=== PATIENT | female | born 1965 | race Caucasian/White ===

== ENCOUNTER 2017-12-02 09:25 | Emergency (ER) | payer MEDICARE, MEDICAID ==
[~2017-12-02] VITALS: Ht 167.6 cm; Wt 84.4 kg
[~2017-12-02 09:25] MED LIST: CANE-100; CYCL-1 PO; METH-360 PO; PANT-47 PO
[2017-12-02] MEDS ORDERED: CYCL-1 PO (13:06)
[2017-12-02 13:48] VITALS: BP 171/86
== END 2017-12-02 13:49 | disposition home or self-care (01) ==
LOC: ER 09:26
DX: M79.1 Myalgia (principal); M54.89 Other dorsalgia; G89.29 Other chronic pain; M19.90 Unspecified osteoarthritis, unspecified site; F17.200 Nicotine dependence, unspecified, uncomplicated; F12.10 Cannabis abuse, uncomplicated; Z98.890 Other specified postprocedural states; Z88.0 Allergy status to penicillin
CPT/HCPCS: 99283

== ENCOUNTER 2023-05-16 13:13 | Day surgery (SDC) | payer MEDICARE, MEDICAID ==
[2023-05-11 12:01] LABS: BASOPHILS # (AUTO) 0.1 X10'3 (0-0.2); BASOPHILS % (AUTO) 0.5 % (0-1); EOSINOPHILS # (AUTO) 0.2 X10'3 (0-0.9); EOSINOPHILS % (AUTO) 2.2 % (0-6); HEMATOCRIT 45.6 % (35.0-45.0); HEMOGLOBIN 15.4 g/dl (12.0-16.0); LYMPHOCYTES # (AUTO) 3.6 X10'3 (1.1-4.8); LYMPHOCYTES % (AUTO) 39.4 % (21-51); MEAN CORPUSCULAR HEMOGLOBIN 32.8 PG (27.0-31.0); MEAN CORPUSCULAR HGB CONC 33.7 g/dL (33.0-36.5); MEAN CORPUSCULAR VOLUME 97.4 FL (78-98); MEAN PLATELET VOLUME 7.9 FL (7.4-10.4); MONOCYTES # (AUTO) 0.7 X10'3 (0-0.9); MONOCYTES % (AUTO) 8.1 % (2-12); NEUTROPHILS # (AUTO) 4.6 X10'3 (1.8-7.7); NEUTROPHILS % (AUTO) 49.8 % (42-75); PLATELET COUNT 296 X10'3 (140-440); RED BLOOD COUNT 4.68 X10'6 (4.20-5.60); RED CELL DISTRIBUTION WIDTH 13.7 % (11.5-14.5); WHITE BLOOD COUNT 9.2 X10'3 (4.5-11.0)
[2023-05-11 12:12] LABS: ALBUMIN 4.4 G/DL (3.4-5.0); ANION GAP 12 (8-16); BLOOD UREA NITROGEN 19 MG/DL (7-18); BUN/CREATININE RATIO 21.6 (10.0-20.0); CHLORIDE 104 MMOL/L (99-107); CREATININE 0.88 MG/DL (0.40-0.90); GLUCOSE 91 MG/DL (70-104); POTASSIUM 3.9 MMOL/L (3.5-5.1); SODIUM 138 MMOL/L (135-145); TOTAL CARBON DIOXIDE 21.9 MMOL/L (24-32); eGFR 66 ML/MIN
[2023-05-11 12:14] LABS: APTT 28 SECONDS (22-32)
[~2023-05-16] VITALS: Ht 167.6 cm; Wt 98.3 kg
[2023-05-16] VITALS (10 sets, daily range): BP systolic 101–137; BP diastolic 70–92
[~2023-05-16 13:13] MED LIST changes: +APIX5TAB3 PO; -CANE-100; -CYCL-1 PO; +LISI5TAB22 PO; -METH-360 PO; +METO-395 PO; +NO HOME MEDS; -PANT-47 PO
[2023-05-16] MEDS ORDERED: normal saline 1000ml 1,000 ML IV SCH (13:25)
[2023-05-16] MEDS ORDERED: MIDAZolam 1mg/ml 10ml vial IV ONE (13:25)
[2023-05-16] MEDS ORDERED: fentaNYL/PF 50MCG/1 ML 2ML syringe IV ONE (13:25)
[2023-05-16] MEDS ORDERED: Ibuprofen PO (13:35)
[2023-05-16] MEDS ORDERED: SOTA80TA73 PO (13:35)
[2023-05-16] MEDS ORDERED: SACU1TAB PO (13:35)
[2023-05-16] MEDS ORDERED: DAPA10TA PO (13:35)
[2023-05-16] MEDS ORDERED: APIX5TAB3 PO (13:37)
== END 2023-05-16 16:45 | disposition home or self-care (01) ==
LOC: SSTAY O 13:13
PROVIDERS: ATTEND Student in an Organized Health Care Education/Training Program
DX: I48.91 Unspecified atrial fibrillation (principal); I11.0 Hypertensive heart disease with heart failure; I50.9 Heart failure, unspecified; I45.10 Unspecified right bundle-branch block; I42.9 Cardiomyopathy, unspecified; E66.9 Obesity, unspecified; Z68.35 Body mass index [BMI] 35.0-35.9, adult; Z79.01 Long term (current) use of anticoagulants; Z79.899 Other long term (current) drug therapy; Z88.0 Allergy status to penicillin; F17.290 Nicotine dependence, other tobacco product, uncomplicated; F19.11 Other psychoactive substance abuse, in remission
CPT/HCPCS: 36415; 80048; 85025; 85610; 85730; 92960; J7030; A4620

== ENCOUNTER 2023-07-07 09:54 | Emergency (ER) | payer MEDICARE, MEDICAID ==
[~2023-07-07] VITALS: Ht 167.6 cm; Wt 100.0 kg
[~2023-07-07 09:54] MED LIST changes: +DAPA10TA PO; +Ibuprofen PO; -LISI5TAB22 PO; -METO-395 PO; -NO HOME MEDS; +SACU1TAB PO; +SOTA80TA73 PO
[2023-07-07 10:04] VITALS: O2SAT 96
[2023-07-07 11:22] VITALS: BP 90/73; PULSE 59; RESP 16
[2023-07-07] MEDS ORDERED: ketorolac trometh inj. 60 MG/2 ML VIAL IM ONE (11:35)
[2023-07-28] MEDS ORDERED: LACT1CAP76 PO (10:28)
[2023-07-28] MEDS ORDERED: DOXY-356 PO (10:28)
== END 2023-08-09 07:49 | disposition home or self-care (01) ==
LOC: ER 09:55
DX: M25.462 Effusion, left knee (principal); M25.562 Pain in left knee; M25.552 Pain in left hip; M19.90 Unspecified osteoarthritis, unspecified site; F12.90 Cannabis use, unspecified, uncomplicated; Z88.0 Allergy status to penicillin; Z79.899 Other long term (current) drug therapy; Z90.49 Acquired absence of other specified parts of digestive tract
CPT/HCPCS: 73502; 73552; 73564; 96372; 99284; J1885

== ENCOUNTER 2023-07-24 10:27 | Inpatient (IN) | payer MEDICARE, MEDICAID ==
[~2023-07-24] VITALS: Ht 167.6 cm; Wt 94.2 kg
[2023-07-24] MEDS ORDERED: HYDROcodone/acetaminophen 10/325mg tab PO ONE (15:25)
[2023-07-24] MEDS ORDERED: cephalexin 250mg capsule PO ONE (15:45)
[2023-07-24] MEDS ORDERED: sulfamethoxazole/trimethoprim DS (800/160mg) tablet PO ONE (15:45)
[2023-07-24] MEDS ORDERED: cephalexin 500mg capsule PO ONE (15:50)
[2023-07-24 16:40] LABS: BASOPHILS % (AUTO) 0.1 % (0-1); EOSINOPHILS % (AUTO) 0.2 % (0-6); HEMATOCRIT 37.5 % (35.0-45.0); HEMOGLOBIN 12.4 g/dl (12.0-16.0); LYMPHOCYTES # (AUTO) 1.6 X10'3 (1.1-4.8); MEAN CORPUSCULAR HEMOGLOBIN 33.2 PG (27.0-31.0); MEAN CORPUSCULAR HGB CONC 33.1 g/dL (33.0-36.5); MEAN CORPUSCULAR VOLUME 100.4 FL (78-98); MONOCYTES # (AUTO) 1.2 X10'3 (0-0.9); MONOCYTES % (AUTO) 6.1 % (2-12); NEUTROPHILS # (AUTO) 16.7 X10'3 (1.8-7.7); NEUTROPHILS % (AUTO) 85.6 % (42-75); PLATELET COUNT 423 X10'3 (140-440); RED BLOOD COUNT 3.74 X10'6 (4.20-5.60); RED CELL DISTRIBUTION WIDTH 15.7 % (11.5-14.5); WHITE BLOOD COUNT 19.5 X10'3 (4.5-11.0)
[2023-07-24 16:58] LABS: ALANINE AMINOTRANSFERASE 26 U/L (12-78); ALBUMIN/GLOBULIN RATIO 1.3 (1.1-1.5); ALKALINE PHOSPHATASE 89 IU/L (46-116); ANION GAP 11 (8-16); ASPARTATE AMINO TRANSFERASE 19 U/L (10-37); BILIRUBIN,TOTAL 0.7 MG/DL (0.1-1.0); BLOOD UREA NITROGEN 11 MG/DL (7-18); BUN/CREATININE RATIO 13.4 (10.0-20.0); CHLORIDE 104 MMOL/L (99-107); CREATININE 0.82 MG/DL (0.40-0.90); GLUCOSE 109 MG/DL (70-104); POTASSIUM 3.1 MMOL/L (3.5-5.1); SODIUM 140 MMOL/L (135-145); TOTAL CARBON DIOXIDE 24.9 MMOL/L (24-32); TOTAL PROTEIN 7.2 G/DL (6.4-8.2); eCRCL 70 ML/MIN; eGFR 72 ML/MIN
[2023-07-24] MEDS ORDERED: vancomycin/NS 1 GM ADD-VANTAGE 250 ML IV ONE (17:40)
[2023-07-24] MEDS ORDERED: potassium Cl 40MEQ/1/2NS 520ml 520 ML IV PRN (18:05)
[2023-07-24] MEDS ORDERED: ondansetron/PF 4mg/2ml inj IV PRN (18:05)
[2023-07-24] MEDS ORDERED: morphine 2 MG/ML inj. syringe IV PRN ×2 (18:05)
[2023-07-24] MEDS ORDERED: magnesium 2GM in 50ml NS 50 ML IV PRN (18:05)
[2023-07-24] MEDS ORDERED: HYDROcodone/acetaminophen 5mg/325mg tablet PO PRN (18:05)
[2023-07-24] MEDS ORDERED: magnesium hydroxide 30ml (MOM) UD suspension PO PRN (18:05)
[2023-07-24] MEDS ORDERED: acetaminophen 325mg tablet PO PRN ×2 (18:05)
[2023-07-24] MEDS ORDERED: potassium Cl 20 mEq SR tablet PO PRN (18:05)
[2023-07-24] MEDS ORDERED: magnesium 4gm in 100ml NS 100 ML IV PRN (18:05)
[2023-07-24] MEDS ORDERED: mag hydrox/Alum hydrox/simeth 30ml oral suspension PO PRN (18:05)
[2023-07-24] MEDS ORDERED: magnesium Cl slow-release 64mg tablet PO PRN (18:05)
[2023-07-24 20:14] LABS: MAGNESIUM 1.9 MG/DL (1.5-2.4)
--- NOTE | 2023-07-24 21:11 | NUR ---
VANCO RESTARTED AFTER NEW PIV ESTABLISHED LAC. 2000 MEDS NOT GIVEN D/T VANCO INFUSION. RECIEVING NSG AWARE
[2023-07-24] MEDS: docusate sod 100mg capsule PO SCH (21:56)
[2023-07-24] MEDS: heparin, porcine 5000 units/ml vial SQ SCH (21:58)
[2023-07-24 22:00] VITALS: BP 120/38; PULSE 67; RESP 16; TEMP 98.4; O2SAT 96
[2023-07-24 23:55] VITALS: RESP 18; O2SAT 96
[2023-07-25 00:19] LABS: URINE AMPHETAMINE SCREEN NEGATIVE (Neg); URINE BARBITUATE SCREEN NEGATIVE (Neg); URINE BENZODIAZEPINES SCREEN NEGATIVE (Neg); URINE CANNABINOID SCREEN POSITIVE (Neg); URINE COCAINE SCREEN NEGATIVE (Neg); URINE METHADONE SCREEN NEGATIVE (Neg); URINE OPIATE SCREEN POSITIVE (Neg); URINE PHENCYCLIDINE SCREEN NEGATIVE (Neg)
[2023-07-25] MEDS: HYDROcodone/acetaminophen 10/325mg tab PO PRN ×5 (03:06→22:11)
[2023-07-25 06:00] VITALS: BP 141/57; PULSE 54; RESP 16; TEMP 98.1; O2SAT 97
[2023-07-25] MEDS ORDERED: VANCOmycin 1250MG/NS 250ml Bag 250 ML IV SCH (06:00)
[2023-07-25 06:48] LABS: BASOPHILS % (AUTO) 0.3 % (0-1); EOSINOPHILS % (AUTO) 0.3 % (0-6); HEMATOCRIT 33.7 % (35.0-45.0); HEMOGLOBIN 11.1 g/dl (12.0-16.0); LYMPHOCYTES # (AUTO) 2.7 X10'3 (1.1-4.8); LYMPHOCYTES % (AUTO) 19.8 % (21-51); MEAN CORPUSCULAR HEMOGLOBIN 33.2 PG (27.0-31.0); MEAN CORPUSCULAR HGB CONC 32.9 g/dL (33.0-36.5); MEAN CORPUSCULAR VOLUME 100.8 FL (78-98); MEAN PLATELET VOLUME 8.1 FL (7.4-10.4); MONOCYTES % (AUTO) 7.7 % (2-12); NEUTROPHILS # (AUTO) 9.7 X10'3 (1.8-7.7); NEUTROPHILS % (AUTO) 71.9 % (42-75); PLATELET COUNT 377 X10'3 (140-440); RED BLOOD COUNT 3.34 X10'6 (4.20-5.60); RED CELL DISTRIBUTION WIDTH 15.6 % (11.5-14.5); WHITE BLOOD COUNT 13.5 X10'3 (4.5-11.0)
--- NOTE | 2023-07-25 06:57 | NUR ---
Problems reprioritized. Patient report given, questions answered & plan of care reviewed with LARA GIORDANO.
[2023-07-25 07:25] LABS: ALANINE AMINOTRANSFERASE 27 U/L (12-78); ALBUMIN 3.4 G/DL (3.4-5.0); ALBUMIN/GLOBULIN RATIO 1.1 (1.1-1.5); ALKALINE PHOSPHATASE 74 IU/L (46-116); ANION GAP 12 (8-16); ASPARTATE AMINO TRANSFERASE 17 U/L (10-37); BILIRUBIN,TOTAL 0.7 MG/DL (0.1-1.0); BLOOD UREA NITROGEN 11 MG/DL (7-18); BUN/CREATININE RATIO 14.1 (10.0-20.0); CALCIUM 8.4 MG/DL (8.5-10.1); CHLORIDE 103 MMOL/L (99-107); CREATININE 0.78 MG/DL (0.40-0.90); GLUCOSE 98 MG/DL (70-104); SODIUM 137 MMOL/L (135-145); TOTAL PROTEIN 6.5 G/DL (6.4-8.2); eCRCL 74 ML/MIN; eGFR 76 ML/MIN
[2023-07-25] MEDS: docusate sod 100mg capsule PO SCH ×2 (07:48→19:49)
[2023-07-25 07:50] VITALS: RESP 16
--- NOTE | 2023-07-25 07:51 | NUR ---
RECEIVED REPORT FROM NOC SHIFT, ASSUMING CARE OF PATIENT.
[2023-07-25] MEDS: heparin, porcine 5000 units/ml vial SQ SCH ×2 (08:00→19:52)
[2023-07-25 08:25] LABS: POTASSIUM 2.8 MMOL/L (3.5-5.1)
--- NOTE | 2023-07-25 08:45 | NUR ---
Per lab pt's K=2.8. Shelia Dong RN was notified
[2023-07-25 10:00] VITALS: BP_SYST 120; BP_SYST 123; BP_DIAS 38; BP_DIAS 69; PULSE 67; PULSE 68; RESP 16; TEMP 98.4; O2SAT 94; O2SAT 96
[2023-07-25] MEDS ORDERED: Potassium Cl inj 40 MEQ in normal saline 1000ml 980 ML IV ONE (10:00)
[2023-07-25] MEDS: nicotine 14mg patch - 24hr TD SCH ×2 (10:10→17:33)
[2023-07-25] MEDS: potassium Cl 20 mEq SR tablet PO PRN ×3 (10:19→17:28)
[2023-07-25 11:07] LABS: APTT 26 SECONDS (22-32); INR 1.1 INR
[2023-07-25 11:11] LABS: PROTHROMBIN TIME 11.4 SECONDS (9.0-12.0)
[2023-07-25 15:17] LABS: BASOPHILS # (AUTO) 0.1 X10'3 (0-0.2); BASOPHILS % (AUTO) 0.5 % (0-1); EOSINOPHILS # (AUTO) 0.1 X10'3 (0-0.9); EOSINOPHILS % (AUTO) 0.5 % (0-6); HEMATOCRIT 32.6 % (35.0-45.0); HEMOGLOBIN 10.9 g/dl (12.0-16.0); LYMPHOCYTES # (AUTO) 1.8 X10'3 (1.1-4.8); LYMPHOCYTES % (AUTO) 17.8 % (21-51); MEAN CORPUSCULAR HEMOGLOBIN 33.4 PG (27.0-31.0); MEAN CORPUSCULAR HGB CONC 33.3 g/dL (33.0-36.5); MEAN CORPUSCULAR VOLUME 100.4 FL (78-98); MEAN PLATELET VOLUME 7.8 FL (7.4-10.4); MONOCYTES # (AUTO) 0.9 X10'3 (0-0.9); MONOCYTES % (AUTO) 9.2 % (2-12); NEUTROPHILS # (AUTO) 7.2 X10'3 (1.8-7.7); PLATELET COUNT 369 X10'3 (140-440); RED BLOOD COUNT 3.25 X10'6 (4.20-5.60); RED CELL DISTRIBUTION WIDTH 15.7 % (11.5-14.5)
--- NOTE | 2023-07-25 16:26 | NUR ---
PRESSURE ULCER EDUCATION: DEFINITION: A pressure ulcer is an area of skin that breaks down when you stay in one position too long. The constant pressure against the skin reduces the blood flow to that area and the affected tissue dies. CAUSES: "Being bedridden or in a wheelchair "Fragile skin "Having a chronic condition, such as diabetes or vascular disease "Inability to move certain parts of your body without assistance "Older age "Incontinence of urine or stool SYMPTOMS: "A reddened area that DOES NOT turn white when pressed on - this can be the beginning of a pressure ulcer "A blister, deep sore or a crater - these can be advanced pressure ulcers FIRST AID: "Relieve the pressure on this area "Keep the area clean and dry "Call your primary doctor if you see any of the above symptoms "DO NOT massage the area "DO NOT use a donut shaped or ring shaped pillow- these actually interfere with the blood flow and cause complications PREVENTION: "Check for pressure ulcers everyday "Change position at least every two hours to relieve pressure "Use items that help relieve pressure- pillows, sheepskin, foam padding, and powders. "Keep skin clean and dry "Eat healthy well balanced meals "Exercise daily IF YOU SEE ANY OF THESE SYMPTOMS WHILE IN THE HOSPITAL - TELL YOUR NURSE IMMEDIATELY. IF YOU SEE ANY OF THESE SYMPTOMS WHILE AT HOME OR HAVE ANY QUESTIONS OR CONCERNS ABOUT PRESSURE ULCERS - CALL YOUR PRIMARY DOCTOR IMMEDIATELY. Addendum: 07/25/23 at 1628 by Hamida Galindo RN Amended: Links added.
[2023-07-25] MEDS: vancomycin/NS 1 GM ADD-VANTAGE 250 ML IV SCH (17:28)
[2023-07-25 18:00] VITALS: BP 113/53; PULSE 70; RESP 16; TEMP 98.4; O2SAT 95
--- NOTE | 2023-07-25 18:30 | NUR ---
Patient in room ORTHO 4006. I have received report from Shelia BERMUDEZ and had the opportunity to ask questions and assume patient care.
--- NOTE | 2023-07-25 18:38 | NUR ---
Rounding Resident notified Heparin held this morning since patient is bleeding.
--- NOTE | 2023-07-25 20:00 | NUR ---
Focussed assessment - pt sitting at bedside. noted dressing on left knee falling off - optifoam. Daniel replaced dressing, noted large black area in center with good pink tissue on edges. surrounding tissue is red and warm around knee. pt tolerated well. lungs clear, productive cough intermittently. pt has irregular HR she states "I have afib and a heart murmer." could not hear murmer but noted irreg HR. pulses intact bilat radial and pedal. IV SL in left arm intact. pt independent to chair. A/o x4. good appetite.
[2023-07-25 22:00] VITALS: BP 129/85; PULSE 67; RESP 16; TEMP 98.5; O2SAT 94
[2023-07-26] VITALS (26 sets, daily range): BP systolic 90–167; BP diastolic 54–98; PULSE 61–90; RESP 13–20; TEMP 98.4–99.1; O2SAT 93–100
--- NOTE | 2023-07-26 04:29 | NUR ---
NA reports that patient is reporting 10/10 pain. Approached pt with pain medication. She irritably states "I don't want that. You hurt my feelings. I don't want anything from you or that other one. I'm having my knee scraped out tomorrow. No one cares." Attempted to understand what had happened for pt to be upset, but she refused to speak about it with me. Offered medication again, but she states "I'll just wait until tomorrow." Offered to have another nurse bring medication, but she refuses this as well, and states "get out". wheat inspector notified
[2023-07-26] MEDS ORDERED: VANCOMYCIN LEVEL IV ONE (05:30)
[2023-07-26] MEDS: HYDROcodone/acetaminophen 10/325mg tab PO PRN ×4 (05:47→21:13)
[2023-07-26] MEDS: vancomycin/NS 1 GM ADD-VANTAGE 250 ML IV SCH (05:53)
[2023-07-26 06:18] LABS: BASOPHILS % (AUTO) 0.3 % (0-1); EOSINOPHILS # (AUTO) 0.1 X10'3 (0-0.9); EOSINOPHILS % (AUTO) 0.8 % (0-6); HEMATOCRIT 34.5 % (35.0-45.0); HEMOGLOBIN 11.5 g/dl (12.0-16.0); LYMPHOCYTES # (AUTO) 2.9 X10'3 (1.1-4.8); LYMPHOCYTES % (AUTO) 30.9 % (21-51); MEAN CORPUSCULAR HEMOGLOBIN 33.8 PG (27.0-31.0); MEAN CORPUSCULAR HGB CONC 33.3 g/dL (33.0-36.5); MEAN CORPUSCULAR VOLUME 101.5 FL (78-98); MONOCYTES # (AUTO) 0.8 X10'3 (0-0.9); MONOCYTES % (AUTO) 8.3 % (2-12); NEUTROPHILS # (AUTO) 5.6 X10'3 (1.8-7.7); NEUTROPHILS % (AUTO) 59.7 % (42-75); PLATELET COUNT 396 X10'3 (140-440); RED CELL DISTRIBUTION WIDTH 16.1 % (11.5-14.5); WHITE BLOOD COUNT 9.4 X10'3 (4.5-11.0)
--- NOTE | 2023-07-26 06:18 | NUR ---
Problems reprioritized. Patient report given, questions answered & plan of care reviewed with Ivy RIGGINS
--- NOTE | 2023-07-26 06:19 | NUR ---
I have received report from VAISHNAVI Sanchez and had the opportunity to ask questions and assume patient care. No distress at this time.
[2023-07-26 06:25] LABS: ALANINE AMINOTRANSFERASE 25 U/L (12-78); ALBUMIN 3.3 G/DL (3.4-5.0); ALKALINE PHOSPHATASE 75 IU/L (46-116); ANION GAP 6 (8-16); ASPARTATE AMINO TRANSFERASE 20 U/L (10-37); BILIRUBIN,TOTAL 0.4 MG/DL (0.1-1.0); BLOOD UREA NITROGEN 12 MG/DL (7-18); BUN/CREATININE RATIO 17.4 (10.0-20.0); CALCIUM 8.6 MG/DL (8.5-10.1); CHLORIDE 107 MMOL/L (99-107); CREATININE 0.69 MG/DL (0.40-0.90); GLUCOSE 110 MG/DL (70-104); POTASSIUM 4.5 MMOL/L (3.5-5.1); SODIUM 139 MMOL/L (135-145); TOTAL CARBON DIOXIDE 25.8 MMOL/L (24-32); TOTAL PROTEIN 6.6 G/DL (6.4-8.2); VANCOMYCIN,TROUGH 10.3 ug/mL (10.0-20.0); eCRCL 83 ML/MIN; eGFR 87 ML/MIN
[2023-07-26] MEDS: nicotine 14mg patch - 24hr TD SCH (07:19)
[2023-07-26] MEDS: docusate sod 100mg capsule PO SCH ×2 (07:25→20:00)
[2023-07-26] MEDS: heparin, porcine 5000 units/ml vial SQ SCH ×2 (07:26→20:00)
[2023-07-26] MEDS ORDERED: ondansetron/PF 4mg/2ml inj IV PRN (13:50)
[2023-07-26] MEDS ORDERED: fentaNYL/PF 50MCG/1 ML 2ML syringe IV PRN ×2 (13:50)
[2023-07-26] MEDS ORDERED: morphine 4 MG/ML inj SYRINge IV PRN (13:50)
[2023-07-26] MEDS ORDERED: ringers solution, lacted 1,000 ML IV SCH (13:50)
[2023-07-26] MEDS ORDERED: hydrALAZINE 20mg/ml inj. IV PRN (13:50)
[2023-07-26] MEDS ORDERED: morphine 2 MG/ML inj. syringe IV PRN (13:50)
[2023-07-26] MEDS ORDERED: labetalol 20mg/4ml (5mg/ml) syringe IV PRN (13:50)
--- NOTE | 2023-07-26 16:15 | NUR ---
Patient transferred to OR by дмитрий. Stable, no distress. IV fluids running as ordered. BS obtained. Has remained NPO.
[2023-07-26] MEDS ORDERED: dexamethasone sod phosphate 10mg/ml inj ONE (17:07)
[2023-07-26] MEDS ORDERED: sevoflurane 250ml liquid IH ONE (17:07)
[2023-07-26] MEDS ORDERED: propofol inj 20 ML IV ONE (17:17)
[2023-07-26] MEDS ORDERED: LIDOcaine 2% (20mg/ml) 5ml vial ONE (17:18)
[2023-07-26] MEDS ORDERED: ondansetron/PF 4mg/2ml inj ONE (17:18)
[2023-07-26] MEDS ORDERED: fentaNYL/PF 50MCG/1 ML 2ML syringe ONE (17:33)
--- NOTE | 2023-07-26 17:42 | NUR ---
Received from OR via HOSPTIAL BED TO RR 8, accompanied by Anesthesiologist DR PEARCE and report given by Anesthesiolgist. PT PRESENTS WITH ORAL AIRWAY IN PLACE WITH 10L VIA MASK WITH SPO2 AT 95%. NO S/S OF DISTRESS NOTED. BILATERAL PEDAL PULSES PALPABLE. VSS. LR RUNNING THRU PIV IN LEFT AC. LEFT KNEE PRESENTS WITH WOUND VAC IN PLACE, LOW CONTINOUS. WILL CONTINUE TO ASSESS.
--- NOTE | 2023-07-26 19:35 | NUR ---
Received report from PACU: pts' VSS, appetite is good, procedure went well and tolerating postoperatively well so far. Wound vac in place of the left knee and running continuos at 125. Will await for pt to rm 4006 A.
--- NOTE | 2023-07-26 19:42 | NUR ---
PATIENT STABLE FOR TRANSFER PER MD ORDERS. REPORT CALLED TO LIANET RECEIVING NURSE, ALL QUESTIONS, COMMENTS AND CONCERNS WERE ANSWERED AT THIS TIME. LEFT KNEE WOUND VAC DRESSING CDI - WOUND VAC GOING AT 125MMHG CONTINOUS. PATIENT HOOKED UP TO POST OP VS, CALL LIGHT IN HAND, BLL. PRIMARY NURSE AWARE OF PATIENT IN ROOM.
[2023-07-26] MEDS: VANCOmycin 1250MG/NS 250ml Bag 250 ML IV SCH (20:46)
[2023-07-26 21:36] LABS: BASOPHILS % (AUTO) 0.2 % (0-1); EOSINOPHILS % (AUTO) 0.1 % (0-6); HEMATOCRIT 33.5 % (35.0-45.0); HEMOGLOBIN 11.2 g/dl (12.0-16.0); LYMPHOCYTES # (AUTO) 0.6 X10'3 (1.1-4.8); LYMPHOCYTES % (AUTO) 7.1 % (21-51); MEAN CORPUSCULAR HEMOGLOBIN 33.7 PG (27.0-31.0); MEAN CORPUSCULAR HGB CONC 33.4 g/dL (33.0-36.5); MEAN PLATELET VOLUME 7.9 FL (7.4-10.4); MONOCYTES # (AUTO) 0.1 X10'3 (0-0.9); NEUTROPHILS # (AUTO) 7.9 X10'3 (1.8-7.7); NEUTROPHILS % (AUTO) 91.6 % (42-75); PLATELET COUNT 358 X10'3 (140-440); RED BLOOD COUNT 3.32 X10'6 (4.20-5.60); RED CELL DISTRIBUTION WIDTH 15.6 % (11.5-14.5); WHITE BLOOD COUNT 8.7 X10'3 (4.5-11.0)
--- NOTE | 2023-07-26 21:50 | NUR ---
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
[2023-07-27] MEDS: HYDROcodone/acetaminophen 10/325mg tab PO PRN ×4 (05:12→20:45)
--- NOTE | 2023-07-27 06:15 | NUR ---
Patient in room ORTHO 4006. I have received report from VAISHNAVI Haynes and had the opportunity to ask questions and assume patient care.
[2023-07-27 06:24] LABS: BASOPHILS % (AUTO) 0.2 % (0-1); EOSINOPHILS % (AUTO) 0 % (0-6); HEMATOCRIT 31.6 % (35.0-45.0); HEMOGLOBIN 10.4 g/dl (12.0-16.0); LYMPHOCYTES # (AUTO) 0.8 X10'3 (1.1-4.8); LYMPHOCYTES % (AUTO) 12.6 % (21-51); MEAN CORPUSCULAR HEMOGLOBIN 33.6 PG (27.0-31.0); MEAN CORPUSCULAR HGB CONC 33.1 g/dL (33.0-36.5); MEAN CORPUSCULAR VOLUME 101.6 FL (78-98); MEAN PLATELET VOLUME 8.1 FL (7.4-10.4); MONOCYTES # (AUTO) 0.2 X10'3 (0-0.9); MONOCYTES % (AUTO) 2.8 % (2-12); NEUTROPHILS # (AUTO) 5.2 X10'3 (1.8-7.7); NEUTROPHILS % (AUTO) 84.4 % (42-75); PLATELET COUNT 390 X10'3 (140-440); RED BLOOD COUNT 3.11 X10'6 (4.20-5.60); RED CELL DISTRIBUTION WIDTH 15.7 % (11.5-14.5); WHITE BLOOD COUNT 6.1 X10'3 (4.5-11.0)
[2023-07-27 06:34] LABS: ALANINE AMINOTRANSFERASE 52 U/L (12-78); ALBUMIN/GLOBULIN RATIO 0.9 (1.1-1.5); ALKALINE PHOSPHATASE 163 IU/L (46-116); ANION GAP 6 (8-16); ASPARTATE AMINO TRANSFERASE 30 U/L (10-37); BILIRUBIN,TOTAL 0.3 MG/DL (0.1-1.0); BLOOD UREA NITROGEN 12 MG/DL (7-18); BUN/CREATININE RATIO 19.7 (10.0-20.0); CALCIUM 8.6 MG/DL (8.5-10.1); CHLORIDE 107 MMOL/L (99-107); CREATININE 0.61 MG/DL (0.40-0.90); GLUCOSE 134 MG/DL (70-104); POTASSIUM 4.4 MMOL/L (3.5-5.1); SODIUM 137 MMOL/L (135-145); TOTAL CARBON DIOXIDE 24.2 MMOL/L (24-32); TOTAL PROTEIN 6.2 G/DL (6.4-8.2); eCRCL 94 ML/MIN; eGFR > 90 ML/MIN
[2023-07-27] MEDS: nicotine 14mg patch - 24hr TD SCH (07:24)
[2023-07-27] MEDS: heparin, porcine 5000 units/ml vial SQ SCH (07:24)
[2023-07-27] MEDS: docusate sod 100mg capsule PO SCH ×2 (07:31→19:48)
[2023-07-27 08:00] VITALS: RESP 17; O2SAT 96
[2023-07-27] MEDS: VANCOmycin 1250MG/NS 250ml Bag 250 ML IV SCH ×2 (09:12→18:53)
[2023-07-27 10:00] VITALS: BP 140/62; PULSE 76; RESP 17; TEMP 98.4; O2SAT 96
[2023-07-27 18:00] VITALS: BP 126/74; PULSE 56; RESP 16; TEMP 97.9; O2SAT 94
--- NOTE | 2023-07-27 18:00 | NUR ---
I have reviewed and agree with interventions, assessments, and documentation by Martín Elliott LVN.
--- NOTE | 2023-07-27 18:16 | NUR ---
Problems reprioritized. Patient report given, questions answered & plan of care reviewed with VAISHNAVI Gurrola.
[2023-07-27] MEDS ORDERED: CefTRIAXone/D5W-Rocephin 1gm 50 ML IV SCH (18:50)
[2023-07-27] MEDS: sotalol HCl 40mg (1/2 tablet) PO SCH (19:47)
[2023-07-27] MEDS: sacubitril/valsartan 24mg-26mg tablet PO SCH (19:48)
[2023-07-27] MEDS: apixaban 5mg tablet PO SCH (19:48)
[2023-07-27 20:00] VITALS: RESP 16; O2SAT 94
[2023-07-27 22:00] VITALS: BP 159/58; PULSE 73; RESP 16; TEMP 97.9; O2SAT 98
[2023-07-28] MEDS: HYDROcodone/acetaminophen 10/325mg tab PO PRN ×4 (00:49→10:03)
[2023-07-28] MEDS ORDERED: VANCOMYCIN LEVEL IV ONE (05:30)
[2023-07-28] MEDS: VANCOmycin 1250MG/NS 250ml Bag 250 ML IV SCH (05:56)
[2023-07-28 06:00] VITALS: BP 122/75; PULSE 80; RESP 16; TEMP 97.6; O2SAT 99
--- NOTE | 2023-07-28 06:29 | NUR ---
Patient in room ORTHO 4006. I have received report from VAISHNAVI Gurrola and had the opportunity to ask questions and assume patient care.
--- NOTE | 2023-07-28 06:47 | NUR ---
I agree with AUTOMOTIVE ELECTRICIAN HELPER physical assessment
[2023-07-28 07:39] LABS: ALANINE AMINOTRANSFERASE 44 U/L (12-78); ALBUMIN 3.3 G/DL (3.4-5.0); ALKALINE PHOSPHATASE 123 IU/L (46-116); ANION GAP 7 (8-16); ASPARTATE AMINO TRANSFERASE 22 U/L (10-37); BILIRUBIN,TOTAL 0.3 MG/DL (0.1-1.0); BLOOD UREA NITROGEN 15 MG/DL (7-18); BUN/CREATININE RATIO 21.1 (10.0-20.0); CALCIUM 8.6 MG/DL (8.5-10.1); CHLORIDE 105 MMOL/L (99-107); CREATININE 0.71 MG/DL (0.40-0.90); GLUCOSE 91 MG/DL (70-104); POTASSIUM 3.6 MMOL/L (3.5-5.1); SODIUM 139 MMOL/L (135-145); TOTAL CARBON DIOXIDE 27.1 MMOL/L (24-32); TOTAL PROTEIN 6.5 G/DL (6.4-8.2); eCRCL 81 ML/MIN; eGFR 85 ML/MIN
[2023-07-28 07:40] VITALS: BP_SYST 122; PULSE 80
[2023-07-28] MEDS: sotalol HCl 40mg (1/2 tablet) PO SCH (07:40)
[2023-07-28] MEDS: sacubitril/valsartan 24mg-26mg tablet PO SCH (07:40)
[2023-07-28] MEDS: apixaban 5mg tablet PO SCH (07:41)
[2023-07-28] MEDS: nicotine 14mg patch - 24hr TD SCH ×2 (07:41→07:43)
[2023-07-28] MEDS: docusate sod 100mg capsule PO SCH (07:45)
[2023-07-28 07:51] LABS: BASOPHILS # (AUTO) 0.1 X10'3 (0-0.2); BASOPHILS % (AUTO) 0.6 % (0-1); EOSINOPHILS % (AUTO) 0.5 % (0-6); HEMATOCRIT 36.5 % (35.0-45.0); HEMOGLOBIN 11.9 g/dl (12.0-16.0); LYMPHOCYTES # (AUTO) 3.6 X10'3 (1.1-4.8); LYMPHOCYTES % (AUTO) 37.4 % (21-51); MEAN CORPUSCULAR HEMOGLOBIN 33.2 PG (27.0-31.0); MEAN CORPUSCULAR HGB CONC 32.6 g/dL (33.0-36.5); MEAN CORPUSCULAR VOLUME 101.6 FL (78-98); MEAN PLATELET VOLUME 7.8 FL (7.4-10.4); MONOCYTES # (AUTO) 0.7 X10'3 (0-0.9); MONOCYTES % (AUTO) 7.5 % (2-12); NEUTROPHILS # (AUTO) 5.1 X10'3 (1.8-7.7); PLATELET COUNT 480 X10'3 (140-440); RED BLOOD COUNT 3.59 X10'6 (4.20-5.60); RED CELL DISTRIBUTION WIDTH 15.9 % (11.5-14.5); WHITE BLOOD COUNT 9.5 X10'3 (4.5-11.0)
[2023-07-28 08:00] VITALS: RESP 16; O2SAT 99
[2023-07-28] MEDS ORDERED: doxycycline inj 100 MG in normal saline 100ml IV soln 100 ML IV SCH (08:00)
[2023-07-28] MEDS ORDERED: DAPAGLIFLOZIN 10MG TABLET PO SCH (08:00)
[2023-07-28 10:03] VITALS: RESP 16
[2023-07-28] MEDS ORDERED: DOXY-356 PO (10:28)
[2023-07-28] MEDS ORDERED: LACT1CAP76 PO (10:28)
--- NOTE | 2023-07-28 12:40 | NUR ---
DIRECTOR EXECUTIVE COMMUNICATIONS documentation: I have reviewed and agree with all interventions, assessments performed and documented by Martín Xavier LVN.
--- NOTE | 2023-07-28 13:42 | NUR ---
Pt stable for d/c. IV discontinued prior to d/c. Patient signed all discharge paperwork, patient left with all belongings. Patient was wheeled down to lobby and left in a private vehicle with family member. D/c at 1336.
--- NOTE | 2023-07-28 15:10 | NUR ---
WOUND VAC EDUCATION PROVIDED BY WOUND CARE 1. Patient instructed to call the Wound Center or their Home Health Agency immediately if: * They notice a change in the color or amount of the fluid in the canister. * Their wound looks more red than usual or has a foul smell. * The skin around their wound looks reddened or irritated. * The dressing feels loose or appears to be loose. * They experience any increase or changes in their pain. * The alarm will not turn off. 2. Patient instructed that they should not be disconnected from suction for more than 2 hours at a time. * If they are not able to get the suction back on, they need to remove the dressing and take all of the foam out of the wound. * Then moisten sterile gauze with normal saline and place on/in the wound. * Change the dressing once a day until arrangements have been made to replace the wound vac dressing. 3. Patient instructed to turn the wound vac machine OFF and call 911 or go to the ED immediately if their canister fills rapidly with blood. 4. If any of these occur while in the hospital tell a nurse immediately. Addendum: 07/28/23 at 1510 by Ivory Black LVN Amended: Links added.
== END 2023-07-28 13:35 | disposition home health service (06) | DRG 571 ==
LOC: ER 10:27 → ED HOLD 18:10 → ORTHO 4S 21:28
PROVIDERS: ADMIT Internal Medicine; ATTEND Internal Medicine
PROC: 0JBP0ZZ Excision of Left Lower Leg Subcutaneous Tissue and Fascia, Open Approach (ICD-10-PCS; principal; 2023-07-26 17:07)
DX: S80.02XA Contusion of left knee, initial encounter (principal); I96 Gangrene, not elsewhere classified; L03.116 Cellulitis of left lower limb; L02.416 Cutaneous abscess of left lower limb; E87.6 Hypokalemia; G89.29 Other chronic pain; M54.9 Dorsalgia, unspecified; I11.0 Hypertensive heart disease with heart failure; M19.90 Unspecified osteoarthritis, unspecified site; I50.9 Heart failure, unspecified; I48.91 Unspecified atrial fibrillation; W18.39XA Other fall on same level, initial encounter; Y93.89 Activity, other specified; Y92.89 Other specified places as the place of occurrence of the external cause; Y99.8 Other external cause status; Z87.891 Personal history of nicotine dependence; Z79.01 Long term (current) use of anticoagulants; Z79.899 Other long term (current) drug therapy; Z88.0 Allergy status to penicillin; Z90.49 Acquired absence of other specified parts of digestive tract
CPT/HCPCS: 36415; 71046; 73700; 80053; 80202; 80305; 82948; 83605; 83735; 84132; 84145; 85025; 85610; 85730; 87040; 87070; 87075; 87076; 87077; 87081; 87102; 87185; 87186; 93005; 93971; 97110; 97161; 97530; 97535; 99285; A4615; A4618; A4649; A6212; A6213; A6253; A6258; A6449; A7000; G0378; J0696; J1100; J1644; J2270; J2405; J2704; J3010; J3370; J3490; J7030; J7120